=== PATIENT | male | born 1965 | race Caucasian/White ===

== ENCOUNTER 2017-09-02 11:37 | Emergency (ER) | payer MEDICARE, OTHER ==
[~2017-09-02] VITALS: Ht 172.7 cm; Wt 49.0 kg
[~2017-09-02 11:37] MED LIST: AVELOX400 MG PO; CELEBREX200 MG PO; LISINOPRIL40 MG PO; NEURONTIN100 MG PO; ROXICODONE15 MG PO; SENNA-DOCUSATE1 EACH PO; SODIUM CHLORIDE1 GM PO; ZOLPIDEM TARTRA10 MG PO
--- NOTE | 2017-09-02 23:50 | EKG ---
[facility] [address] [facility] [place], [place] [address] Signed Normal sinus rhythm Right atrial enlargement Incomplete right bundle branch block Anteroseptal infarct , age undetermined Abnormal ECG No previous ECGs available Confirmed by SOTO FRANCISCO MD ([id number] on 09/02/2017 11:50:23 PM Electronically Signed By: SOTO FRANCISCO MD 09/02/17 2350 PATIENT NAME: TITI FINCH MARINKEIRA Electrocardiogram DATE OF : 63 PHYSICIAN: SOTO FRANCISCO MD REPORT #: [id number] REPORT IS CONFIDENTIAL AND NOT TO BE RELEASED WITHOUT AUTHORIZATION
== END 2017-09-02 21:49 | disposition short-term general hospital (02) ==
LOC: ED 11:37
DX: N17.9 Acute kidney failure, unspecified (principal); E87.6 Hypokalemia; E86.0 Dehydration; J11.1 Influenza due to unidentified influenza virus with other respiratory manifestations; I10 Essential (primary) hypertension; F17.200 Nicotine dependence, unspecified, uncomplicated; Z79.899 Other long term (current) drug therapy
CPT/HCPCS: 71045; 71250; 80048; 80053; 81001; 82550; 82803; 83605; 83880; 84484; 85025; 87040; 87077; 87186; 87502; 93005; 93010; 94640; 96361; 96365; 96375; 99285; G0480; J2543; J2930; J7030; J7120

== ENCOUNTER 2018-10-31 12:56 | Emergency (ER) | payer MEDICARE ==
[~2018-10-31] VITALS: Ht 172.7 cm; Wt 47.2 kg
== END 2018-10-31 17:01 | disposition home or self-care (01) ==
LOC: ED 12:56
DX: G40.909 Epilepsy, unspecified, not intractable, without status epilepticus (principal); I10 Essential (primary) hypertension; E78.5 Hyperlipidemia, unspecified; F17.200 Nicotine dependence, unspecified, uncomplicated; Z79.899 Other long term (current) drug therapy
CPT/HCPCS: 80053; 85025; 99284

== ENCOUNTER 2018-12-19 20:56 | Emergency (ER) | payer MEDICARE ==
[~2018-12-19] VITALS: Ht 172.7 cm; Wt 47.2 kg
[2018-12-19] MEDS ORDERED: CEPHALEXIN500 MG PO (21:44)
== END 2018-12-19 22:25 | disposition home or self-care (01) ==
LOC: ED 20:56
PROC: 0HQ0XZZ Repair Scalp Skin, External Approach (ICD-10-PCS; principal; 2018-12-19)
DX: S01.01XA Laceration without foreign body of scalp, initial encounter (principal); I10 Essential (primary) hypertension; F17.200 Nicotine dependence, unspecified, uncomplicated; Z23 Encounter for immunization; W19.XXXA Unspecified fall, initial encounter
CPT/HCPCS: 12002; 90471; 90715; 99283-25